=== PATIENT | female | born 1965 | race Caucasian/White ===

== ENCOUNTER → 2016-10-27 | Outpatient (CLI) | payer OTHER ==
[~2016-10-27] MED LIST: ADVAIR 250-501 EACH IH; CIPRO PO; IBUPROFEN PO; LORTAB 10-5001 EACH PO; PRILOSEC20 MG PO; PYRIDIUM PO; SPIRIVA18 MCG INH; VICODIN 5/500 T1 TAB PO
--- NOTE | ~2016-10-27 | MY29 ---
[facility] A Service of [facility] RADIOLOGY TEXT RESULTS PATIENT: ANGE CARPENTER LOCATION: [facility] : 61 UNIT #: [id number] AGE: [address]: Monique Rodriguez MD SEX: F ORDER DR: [id number] [facility]. [place], [place] [address] [id number] O MR#: [id number] Acc #: [id number] NAME: ANGE CARPENTER : 1965 SEX: F STUDY DATE/TIME: 10/27/2016 12:30 UNIT: [facility] ROOM: STUDY DESCRIPTION: MY [facility] SCREENING W/ CAD BILAT Attending Physician: Monique Rodriguez M.D. Referring Physician: Monique Rodriguez M.D. Ordering Physician: Monique Rodriguez M.D. Primary Care Physician: Monique Rodriguez M.D. MEDICAL IMAGING REPORT This report is preliminary unless electronic signature is present EXAM Bilateral digital screening mammogram with CAD 10/27/2016 INDICATIONS 51-year-old female for routine screening. No reported problems and no personal or family history of breast cancer. No surgeries. CC and MLO views of the breasts were obtained with FDA approved CAD device. COMPARISON STUDIES 10/16/2015, 05/10/2013 FINDINGS Breast parenchyma is composed of heterogeneously dense breast tissue. The pattern is unchanged. There is no new dominant nodule, mass or suspicious cluster of microcalcifications. There is motion degradation on the left CC view. A technical repeat CC view left breast is recommended for better characterization. IMPRESSION Motion degradation. The left CC image is blurry. A technical repeat is recommended. BIRADS category 0 Patients over the age of 40 are entered into a reminder system with target due date for the next mammogram. A result letter will also be sent to the patient. BIRADS: 0 - Need additional imaging evaluation and/or prior mammograms for comparison [facility] A Service of [facility] RADIOLOGY TEXT RESULTS PATIENT: ANGE CARPENTER LOCATION: [facility] : 61 UNIT #: [id number] AGE: [address]: Monique Rodriguez MD SEX: F ORDER DR: Dictated by... Riky Allen M.D. THIS IS AN ELECTRONICALLY VERIFIED REPORT Riky Allen M.D. at 10/27/2016 4:02 PM Triston TD: 10/27/2016 15:47 JOB #: [id number] MEDICAL IMAGING REPORT Page 1 of 1 COPY
== END | disposition home or self-care (01) ==
LOC: CWCC 10-21 10:45
DX: Z12.31 Encounter for screening mammogram for malignant neoplasm of breast (principal)
CPT/HCPCS: G0202

== ENCOUNTER → 2016-11-10 | Outpatient (CLI) | payer OTHER ==
--- NOTE | ~2016-11-10 | MY27 ---
[facility] A Service of [facility] RADIOLOGY TEXT RESULTS PATIENT: ANGE CARPENTER LOCATION: [facility] : 61 UNIT #: [id number] AGE: [address]: Monique Rodriguez MD SEX: F ORDER DR: [id number] [facility]. [place], [place] [address] [id number] O MR#: [id number] Acc #: [id number] NAME: ANGE CARPENTER : 1965 SEX: F STUDY DATE/TIME: 11/10/2016 9:40 UNIT: [facility] ROOM: STUDY DESCRIPTION: ERICA SCREEN W/ CAD UNI LT Attending Physician: Monique Rodriguez M.D. Referring Physician: Monique Rodriguez M.D. Ordering Physician: Monique Rodriguez M.D. Primary Care Physician: Monique Rodriguez M.D. MEDICAL IMAGING REPORT This report is preliminary unless electronic signature is present REVISED REPORT SEE ADDENDUM EXAM Bilateral digital screening mammogram with CAD 10/27/2016 INDICATIONS 51-year-old female for routine screening. No reported problems and no personal or family history of breast cancer. No surgeries. CC and MLO views of the breasts were obtained with FDA approved CAD device. COMPARISON STUDIES 10/16/2015, 05/10/2013 FINDINGS Breast parenchyma is composed of heterogeneously dense breast tissue. The pattern is unchanged. There is no new dominant nodule, mass or suspicious cluster of microcalcifications. There is motion degradation on the left CC view. A technical repeat CC view left breast is recommended for better characterization. IMPRESSION Motion degradation. The left CC image is blurry. A technical repeat is recommended. BIRADS category 0 Patients over the age of 40 are entered into a reminder system with target due date for the next mammogram. A result letter will also be sent to the [facility] A Service of [facility] RADIOLOGY TEXT RESULTS PATIENT: ANGE CARPENTER LOCATION: [facility] : 61 UNIT #: [id number] AGE: [address]: Monique Rodriguez MD SEX: F ORDER DR: patient. BIRADS: 0 - Need additional imaging evaluation and/or prior mammograms for comparison Dictated by... Riky Allen M.D. THIS IS AN ELECTRONICALLY VERIFIED REPORT Riky Allen M.D. at 10/27/2016 4:02 PM Triston TD: 10/27/2016 15:47 JOB #: [id number] ADDENDUM Technical repeat CC view of the left breast was performed and is negative. Return to an annual screening regimen is recommended. BIRADS: 2 Benign finding Dictated by... Riky Allen M.D. THIS IS AN ELECTRONICALLY VERIFIED REPORT Riky Allen M.D. at 11/14/2016 11:47 AM Bruno TD: 11/10/2016 11:08 JOB #: [id number] CC: Aleja/troy Please Delete MEDICAL IMAGING REPORT Page 1 of 1 COPY
== END | disposition home or self-care (01) ==
LOC: CMAM 09:12
DX: Z12.31 Encounter for screening mammogram for malignant neoplasm of breast (principal)
CPT/HCPCS: G0202